=== PATIENT | male | born 1965 | race Caucasian/White ===

== ENCOUNTER 2025-02-26 06:02 | Day surgery (SDC) | payer BC, SELFPAY ==
[2025-02-11 12:50] VITALS: BMI 33.3
[2025-02-11 13:23] LABS: Hematocrit 41.0 % (39.0-52.0); Hemoglobin 14.4 g/dL (13.0-18.0); Mean Corp Hgb Conc. 35.1 g/dL (33.0-37.0); Mean Corpuscular Volume 86.1 fL (80.0-94.0); Nucleated Red Blood Cells % 0 % (-); Platelet Count 234 10^3/uL (130-400); Red Cell Dist. Width 13.7 % (11.5-14.5)
[2025-02-11 13:30] LABS: ALT (SGPT) 18 U/L (0-50); AST (SGOT) 15 U/L (17-59); Albumin 4.7 g/dl (3.5-5.0); Alkaline Phosphatase 74 U/L (38-126); Blood Urea Nitrogen 11 mg/dl (9-20); Calcium 9.6 mg/dl (8.4-10.2); Carbon Dioxide 22 mmol/L (22-30); Chloride 104 mmol/L (98-107); Estimated Creatinine Clearance > 125 ml/min; Glucose 264 mg/dl (70-99); INR 0.89; Magnesium 1.4 mg/dl (1.6-2.3); PT 12.3 Sec (11.4-14.6); Potassium 4.7 mmol/L (3.5-5.1); Sodium 134 mmol/L (135-145); Total Protein 7.3 g/dl (6.3-8.2); eGFR > 60.00
[2025-02-26] VITALS (17 sets, daily range): BP systolic 100–163; BP diastolic 52–73
--- NOTE | 2025-02-26 07:02 | ITS.CL.ABL ---
[employer] - Ablation
Ablation
Procedure Report:
Primary Inspector Finishing: Dr. Dav Odell
Procedure Date: 02/26/2025
Patient History:
Patient is a pleasant 59-year-old male with a past medical history significant for heart failure with preserved ejection fraction, hypertension, tobacco use disorder, and symptomatic paroxysmal atrial fibrillation.
See H&P for complete details.
Indication:
Symptomatic paroxysmal atrial fibrillation
Heart failure with preserved ejection fraction
Arrhythmia Specific History:
Prior Medical Therapies for Rate and Rhythm Control:
X Beta-luis
X Calcium channel-luis
[ ] Amiodarone
[ ] Dronederone
X Sotalol
[ ] Flecainide
[ ] Dofetilide
[ ] Options limited by bradycardia
[ ] Options limited by comorbid renal disease
Prior Procedural Therapies for AF/AFL:
X Cardioversion
[ ] Pulmonary Vein Isolation
[ ] Posterior Wall Isolation
[ ] Additional lines (Specify)
[ ] Surgical Corral-MAZE or PVI (Specify)
Procedure Performed:
X AF ablation procedure (26319) -- includes LA/CS pacing, trans-septal, 3D mapping, + ICE
[ ] +IV drug (41961)
[ ] +Other Arrhythmia (53372)
X +Other AF Line/ablation (73967) x2 -- floor line, roof line, posterior wall isolation
Risks and expected recovery has been explained in detail. Alternative options have been explored, and in a shared-decision making fashion we have decided that this was the most appropriate procedure.
Method
NPO status confirmed. Grounding pad applied. Defibrillator pads applied. Continuous surface ECG, pulse oximetry, and blood pressure were monitored. Procedure was performed under general anesthesia, with anesthesia services.
Both groins were clipped, prepped with Chloraprep, and draped in sterile fashion. Time out was called. Local anesthesia administered with bupivacaine. The right femoral vein was accessed for catheter placement, using ultrasound guidance (images
saved to record), micro-puncture needle/wire, and modified seldinger technique. 3 sheaths were placed. The following catheters were used:
[ ] Tacticath SE (D/F Curve) ablation catheter
X Viewflex 9Fr ICE catheter
X Inquiry decapolar 6Fr diagnostic catheter
[ ] CRD Hex 6Fr
X FlexCath Contour 10 Fr with PulseSelect PFA Catheter
X Advisor HD Grid Mapping Catheter, SE
[ ] AcusLiquiverse AcuNav 8 Fr ICE catheter
[ ]Other: [ ]
Intracardiac ultrasound (ICE) was carefully advanced into the right atrium to guide sheath placement over a J-wire, catheter placement, guide trans-septal puncture, identify potential complications, identify anatomic structures and ensure proper
contact between ablation catheter and tissue.
Heparin was given prior to trans-septal puncture. Heparin was given to achieve and maintain a target ACT of 300-400 seconds throughout the procedure.
Trans-septal access was performed under ICE guidance. The trans-septal puncture was performed with a SafeSept wire through a Brockenbrough needle assembly through the steerable sheath. The wire was visualized as it entered the LSPV and system
advanced under ICE guidance and fluoroscopy into the LA. The Brockenbrough needle assembly, SafeSept wire and sheath dilator were removed under negative pressure. LA pressure was measured and recorded.
ICE and 3D mapping was performed to identify relevant cardiac structures. A careful 3D map was created to assess for regions of low-voltage and abnormal electrogram signals using HD grid mapping catheter and PulseSelect catheter. Additional mapping
was performed as outlined below.
Prior to ablation, glycopyrrolate was provided. PulseSelect catheter was advanced over J-wire to the ostium of each vein. Pulmonary vein isolation was performed with ostial and antral lesions in a circumferential manner. Contact was visualized via
EAM, ICE, fluoroscopy, and EGM signals.
After accomplishing pulmonary venous isolation, mapping identified additional areas likely to be extra PV contributors to atrial fibrillation. These areas demonstrated patchy low voltage as well as complex fractionated electrograms. These areas can
be sites for the formation of rotors which can drive and maintain atrial fibrillation. These areas are known to be significant contributors to initiation and perpetuation of atrial fibrillation.
Additional energy applications/additional ablation sets targeted extra PV contributors to atrial fibrillation.
Targets for additional PFA ablation included: LA posterior wall targeted with pulsed electric field energy isolating the posterior wall of the left atrium. Posterior wall isolation was performed by anchoring the J-wire within the pulmonary vein and
placing the PulseSelect catheter in contact posterior wall as visualized by aforementioned methods.
After ablation of the posterior wall, targets remained including:
- Inferior LA floor
- Anterior LA roof
- The ridge of tissue between the left atrial appendage and the left sided pulmonary veins (Ligament of Kerwin)
These areas were ablated using pulsed electric field energy eliminating the extra PV contributors to atrial fibrillation.
Following completion of ablation lesions, a post-ablation voltage/activation map was performed in atrial pacing. Entrance and exit block were confirmed for each vein and the posterior wall.
Catheter and sheath were removed from the left atrium and post-ablation intracardiac echo evaluation was consistent with pre-ablation with no changes and no pericardial effusion and there is no left atrial thrombus or left ventricle thrombus seen.
Electrophysiology study was performed. Hemostasis was obtained with figure of 8 stitch for each groin and with manual pressure. Protamine was used for reversal.
Estimated Blood Loss
5 mL
Complications
None
Fluoroscopy: 2.8 minutes; 10.5 mGy; DAP 1.4
LA Pressure: Pre 14 mmHg, post 17 mmHg
Baseline Intervals:
Rhythm: Sinus rhythm
PA: 132 ms
QRS: 93 ms
QT: 484 ms
Post-Procedure Intervals:
PA: 140 ms
QRS: 83 ms
QT: 437 ms
AVWB: 340 ms
AVNERP: 600/250 ms
AERP: 600/250 ms
Recommendations
- Bedrest with straight-leg precautions as ordered
- Admit with anticipate discharge home tomorrow after overnight observation
- Resume home medications as indicated
- Ok to resume anticoagulation tonight if patient and groin sites stable
- Plan for follow-up in office as scheduled with primary principal archaeologist
- Continue sotalol 80 mg BID with planned reduction at 3 months post ablation
Natalio Pa DO, FACC, RS
Clinical Cardiac [facility]
cc: Dr Dav Odell; Holly KRISHNAN
[2025-02-26 07:23] LABS: Glucose 385 mg/dl (70-99)
[2025-02-26] MEDS: NOVOLOG vial 8 UNITS SC (07:26)
[2025-02-26 08:58] LABS: ACT-LR - POC 294 Seconds (116-155)
[2025-02-26 09:05] LABS: Glucose - Point of Care 287 mg/dl (70-99)
[2025-02-26 09:21] LABS: ACT-LR - POC 314 Seconds (116-155)
[2025-02-26 09:45] LABS: ACT-LR - POC 360 Seconds (116-155)
[2025-02-26 10:00] LABS: Glucose - Point of Care 404 mg/dl (70-99)
[2025-02-26 10:04] LABS: Glucose - Point of Care 242 mg/dl (70-99)
[2025-02-26 10:06] LABS: ACT-LR - POC 327 Seconds (116-155)
[2025-02-26 10:19] LABS: ACT-LR - POC 165 Seconds (116-155)
[2025-02-26] MEDS: CELEXA PO (11:18)
[2025-02-26] MEDS: LIPITOR PO (11:18)
[2025-02-26] MEDS: PRADAXA PO (11:18)
[2025-02-26] MEDS: LASIX PO (11:18)
[2025-02-26] MEDS: DILAUDID 0.5 MG IV (11:22)
[2025-02-26 11:38] LABS: Glucose - Point of Care 222 mg/dl (70-99)
[2025-02-26] MEDS: GLUCOPHAGE XR EXTENDED RELEASE 750 MG PO (13:12)
--- NOTE | 2025-02-26 13:17 | PTCARENOTE ---
Pt received from labor relations officer around noon. AAOx3 report pain to left shoulder which he was medicated with Dilaudid prior to arrival to the unit. R groin site checked CDI soft/no bruise. Patient right lower ext check with Doppler -pluses present.
Pluses present to LLE. Patient instructed on bed restriction and HOB restrictions. Patient receptive.
--- NOTE | 2025-02-26 14:27 | CM ---
Chart reviewed. Patient is independent of ADLS, lives alone in a 2nd floor apartment, elevator access, 0 DME. Plan is for the patient to return home. CM to follow
[2025-02-26] MEDS: PROTONIX 40 MG PO (15:08)
[2025-02-26] MEDS: NORVASC 10 MG PO (17:28)
[2025-02-26] MEDS: PRADAXA 150 MG PO (19:39)
[2025-02-26] MEDS: BETAPACE 80 MG PO (19:40)
--- NOTE | 2025-02-26 21:48 | PTCARENOTE ---
Received patient at change of shift. SR on the monitor, HR in the 60s. R groin dressing CDI, soft. No complaints from pt at this time, call ferrell within reach.
[2025-02-26 22:02] LABS: Glucose - Point of Care 262 mg/dl (70-99)
[2025-02-27 04:51] VITALS: BP 131/63
[2025-02-27 05:23] LABS: Hematocrit 32.7 % (39.0-52.0); Hemoglobin 11.4 g/dL (13.0-18.0); Mean Corp Hgb Conc. 34.9 g/dL (33.0-37.0); Mean Corpuscular Volume 87.0 fL (80.0-94.0); Platelet Count 194 10^3/uL (130-400); Red Cell Dist. Width 13.8 % (11.5-14.5)
[2025-02-27 05:45] LABS: Blood Urea Nitrogen 10 mg/dl (9-20); Calcium 9.0 mg/dl (8.4-10.2); Carbon Dioxide 24 mmol/L (22-30); Chloride 108 mmol/L (98-107); Estimated Creatinine Clearance > 125 ml/min; Glucose 203 mg/dl (70-99); Magnesium 1.6 mg/dl (1.6-2.3); Potassium 4.1 mmol/L (3.5-5.1); Sodium 136 mmol/L (135-145); eGFR > 60.00
[2025-02-27 07:53] VITALS: BP 127/53
[2025-02-27 08:42] LABS: Glycohemoglobin (HgbA1c) 9.5 % (4.0-5.6)
--- NOTE | 2025-02-27 09:23 | W.PN.CARDCBS ---
Addendum entered and electronically signed by Rachid Estes MD 02/27/25 10:01:
patient seen and examined
agree with DOUGH PUNCHER note and assessment
agree with DOUGH PUNCHER plan
exam:
sr on tele
bilateral groins cdi
aao x 3
non focal neurologically
jvp 6
cor regular
Impression:
Symptomatic paroxysmal atrial fibrillation
post PVI, PW ablation 02/26/25
Chronic HFpEF
HTN
MAGUI, non compliant with device
NIDDM
GERD
Hypomagnesemia
Anxiety
tobacco abuse
Plan:
post ablation feels good
tele SR/SB, no sig ectopy
groin stable
OAC dabigatran 150mg bid
Mg 1.6 continue magnesium goal Mg >2, K >4
continue sotalol 80mg bid,
Activity restrictions reviewed
f/u Dr. Odell in 3 mo
home today
Original Note:
Today's Communication / Plan
-
post ablation stable for d/c home
Impression / Plan
-
PCP: ARIELLA Bernabe
CDY: Paramjit Odell MD
Impression:
Symptomatic paroxysmal atrial fibrillation
post PVI, PW ablation 02/26/25
Chronic HFpEF
HTN
MAGUI, non compliant with device
NIDDM
GERD
Hypomagnesemia
Anxiety
tobacco abuse
Plan:
post ablation feels good
tele SR/SB, no sig ectopy
groin stable
OAC dabigatran 150mg bid
Mg 1.6 continue magnesium goal Mg >2, K >4
continue sotalol 80mg bid,
Activity restrictions reviewed
f/u Dr. Odell in 3 mo
home today
Progress Note - Sole Rounding Machine Operator
Subjective
Date of Service: February 27, 2025
denies cp, sob
Objective
Labs:
02/27/25 05:00
02/27/25 05:00
Labs
Hgb 11.4 g/dL (13.0-18.0) L 02/27/25 05:00
Hct 32.7 % (39.0-52.0) L 02/27/25 05:00
Plt Count 194 10^3/uL (130-400) 02/27/25 05:00
PT 12.3 Sec (11.4-14.6) 02/11/25 12:57
INR 0.89 02/11/25 12:57
Sodium 136 mmol/L (135-145) 02/27/25 05:00
Potassium 4.1 mmol/L (3.5-5.1) 02/27/25 05:00
BUN 10 mg/dl (9-20) 02/27/25 05:00
Creatinine 0.6 mg/dL (0.7-1.3) L 02/27/25 05:00
Glucose 203 mg/dl (70-99) H 02/27/25 05:00
Vital Signs and I&O:
Vital Signs
Temp Pulse Resp BP Pulse Ox
98 F 60 20 131/63 98
02/27/25 07:53 02/27/25 04:51 02/27/25 07:53 02/27/25 04:51 02/27/25 07:53
Vital Signs
Temp Pulse Resp BP Pulse Ox
98 F 60 20 131/63 98
02/27/25 07:53 02/27/25 04:51 02/27/25 07:53 02/27/25 04:51 02/27/25 07:53
Intake & Output
02/25/25 02/26/25 02/27/25 02/28/25
06:59 06:59 06:59 06:59
Intake Total 1830 / 1830
Output Total 1749
Balance 80 / 80
Physical Exam
Physical Exam
NAD< AOX3
S1, S2, RRR
CTAB, non labored, no wheeze
SNTND bsx4
R fem site c/d/i no HT, soft, mild ecchymosis
[2025-02-27] MEDS: PRADAXA 150 MG PO (09:48)
[2025-02-27] MEDS: LASIX 40 MG PO (09:48)
[2025-02-27] MEDS: LIPITOR 20 MG PO (09:49)
[2025-02-27] MEDS: PROTONIX 40 MG PO (09:49)
[2025-02-27] MEDS: BETAPACE 80 MG PO (09:49)
[2025-02-27] MEDS: CELEXA 40 MG PO (09:49)
[2025-02-27] MEDS: GLUCOPHAGE XR EXTENDED RELEASE 750 MG PO (09:49)
--- NOTE | 2025-02-27 10:11 | PTCARENOTE ---
Assumed care of the pt @ 0700. Pt is AAOx3 SB on the monitor denies cp. rt groin dressing c/d/i no evidence of hematoma. Pt sitting up eating breakfast. Call ferrell within reach.
--- NOTE | 2025-02-27 10:34 | W.DS.TRANS ---
DC Summary - [employer] Business [employer] Officer
-
Discharge Instructions:
Discharge Diagnosis/Procedures AFib, s/p ablation
Diet Low Cholesterol
Driving Restrictions No driving for 24 hours
Instructions:
Stand-Alone Forms: DC Instructions- Cath/EP Lab
Changes to Home Medications: No
Discharge Medications:
DC Medications w/original date entered in [facility]
acetaminophen 500 mg tablet 500 mg PO Q6H PRN pain 02/10/25
atorvastatin 20 mg tablet 20 mg PO DAILY 02/10/25
citalopram 40 mg tablet 40 mg PO DAILY 02/10/25
dabigatran etexilate 150 mg capsule 150 mg PO BID 02/10/25
furosemide 40 mg tablet 40 mg PO DAILY 02/10/25
metformin 750 mg tablet,extended release 24 hr 750 mg PO DAILY 02/10/25
omeprazole 20 mg tablet,delayed release 20 mg PO DAILY 02/10/25
amlodipine 10 mg tablet 10 mg PO QPM 02/11/25
magnesium oxide 400 mg PO DAILY #30 tabs 02/18/25
sotalol 80 mg tablet 80 mg PO BID 02/26/25
Home Medication Changes
Pending Results: No
== END 2025-02-27 12:31 | disposition home or self-care (01) ==
LOC: CATH 06:02
PROVIDERS: Nurse Practitioner; ATTENDING PHYSICIAN Internal Medicine Cardiovascular Disease; FAMILY PHYSICIAN Nurse Practitioner Family; OTHER PHYSICIAN Internal Medicine
DX: I48.0 Paroxysmal atrial fibrillation (principal); I11.0 Hypertensive heart disease with heart failure; I50.32 Chronic diastolic (congestive) heart failure
CPT/HCPCS: C1733; 36415; 75572; 80048; 80053; 82947; 82962; 83036; 83735; 85025; 85027; 85347; 85610; 86850; 86900; 86901; 93005; 93656; 93657; C1730; C1732; C1766; C1769; C1894; Q9967